=== PATIENT | male | born 2005 | race Caucasian/White ===

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

== ENCOUNTER 2025-02-10 01:28 | Emergency (ER) | payer OTHER ==
[2025-02-10 01:46] VITALS: BP 100/96; PULSE 122; RESP 20; TEMP 98; BMI 33.7
[2025-02-10] MEDS ORDERED: DIPHTH,PERTUSS(ACELL),TET 0.5 ML DISP.SYRIN IM ONE (02:09)
[2025-02-10] MEDS: DIPHTH,PERTUSS(ACELL),TET 0.5 ML DISP.SYRIN IM ONE (02:19)
== END 2025-02-10 03:04 | disposition home or self-care (01) ==
LOC: JER 01:28
PROC: 0HQFXZZ Repair Right Hand Skin, External Approach (ICD-10-PCS; principal; 2025-02-10)
PROC: 3E0234Z Introduction of Serum, Toxoid and Vaccine into Muscle, Percutaneous Approach (ICD-10-PCS; 2025-02-10)
DX: S61.411A Laceration without foreign body of right hand, initial encounter (principal); Z23 Encounter for immunization; W25.XXXA Contact with sharp glass, initial encounter
CPT/HCPCS: 12001-25; 73130-TC-RT-FY; 90471; 90715; 99284-25